=== PATIENT | male | born 1955 | race Caucasian/White ===

== ENCOUNTER 2023-01-28 13:28 | Outpatient (CLI) | payer OTHER | END 2023-01-28 13:29 | disposition home or self-care (01) | LOC: CSHMRI 13:28 | PROVIDERS: ATTEND Psychiatry & Neurology Neurology | DX: G95.9 Disease of spinal cord, unspecified (principal); M47.812 Spondylosis without myelopathy or radiculopathy, cervical region | CPT/HCPCS: 72146 ==